=== PATIENT | female | born 1995 | race Hispanic/Latino ===

== ENCOUNTER 2022-08-16 15:29 | Emergency (ER) | payer OTHER ==
[~2022-08-16 15:29] MED LIST: Iopamidol 300 61% 100 ML VIAL FS ONE
[2022-08-16] MEDS ORDERED: Ketorolac Tromethamine 30 MG/ML VIAL ONE (16:24)
[2022-08-16] MEDS ORDERED: Clindamycin/D5W 900 MG in Premix Bag 1 BAG IVPB SCH (16:30)
== END 2022-08-16 17:26 | disposition home or self-care (01) ==
LOC: CSHERS 15:29
DX: K02.9 Dental caries, unspecified (principal)
CPT/HCPCS: 70487; 96365; 96375; J1885; J3490; Q9967